=== PATIENT | female | born 1965 | race Caucasian/White ===

== ENCOUNTER 2023-03-23 20:36 | Emergency (ER) | payer OTHER ==
[~2023-03-23] VITALS: Ht 170.2 cm; Wt 72.6 kg
[2023-03-23 20:51] VITALS: TEMP 98
[2023-03-23] MEDS ORDERED: methylPREDNISolone SOD SUCC 125 MG/2ML VIAL ONE (21:10)
[2023-03-23] MEDS ORDERED: diphenhydrAMINE HCL 50 MG/ML VIAL ONE (21:10)
[2023-03-23] MEDS ORDERED: FAMOTIDINE/PF INJ 20 MG/2 ML VIAL IV ONE ×2 (21:11→21:30)
[2023-03-23] MEDS ORDERED: methylPREDNISolone SOD SUCC 125 MG/2ML VIAL IV ONE (21:30)
[2023-03-23] MEDS ORDERED: diphenhydrAMINE HCL 50 MG/ML VIAL IV ONE (21:30)
[2023-03-23] MEDS ORDERED: PRED50TA PO (22:21)
[2023-03-23] MEDS ORDERED: DIPH25TA62 PO (22:21)
[2023-03-23] MEDS ORDERED: FAMO20TA8 PO (22:21)
[2023-03-23 22:50] VITALS: BP 128/75; O2SAT 97
== END 2023-03-23 22:50 | disposition home or self-care (01) ==
LOC: ER 20:41
DX: T78.1XXA Other adverse food reactions, not elsewhere classified, initial encounter (principal); Z86.73 Personal history of transient ischemic attack (TIA), and cerebral infarction without residual deficits; Z85.3 Personal history of malignant neoplasm of breast; Z88.1 Allergy status to other antibiotic agents; X58.XXXA Exposure to other specified factors, initial encounter
CPT/HCPCS: 99284; 96374; 96375; J1200; J3490; J2930